=== PATIENT | male | born 1950 | race Caucasian/White ===

== ENCOUNTER 2021-03-06 14:08 | Observation (INO) | payer MEDICARE, OTHER ==
[~2021-03-06] VITALS: Ht 175.3 cm; Wt 82.8 kg
[~2021-03-06 14:08] MED LIST: ASPI-988 PO; CEPH500B PO; METR500T PO
[2021-03-06 15:15] LABS: APPEARANCE,URINE Clear (CLEAR); BILIRUBIN,URINE Negative (NEGATIVE); COLOR,URINE Dark Yellow (YELLOW); GLUCOSE, URINE (UA) Negative (NEGATIVE); KETONES,URINE Trace mg/dL (NEGATIVE); LEUKOCYTE ESTERASE ,URINE Negative (NEGATIVE); NITRATE,URINE Negative (NEGATIVE); OCCULT BLOOD,URINE Negative (NEGATIVE); PROTEIN,URINE Negative (NEGATIVE); UROBILINOGEN,URINE 0.2 mg/dL (0.2-1.0)
[2021-03-06 15:27] LABS: BASOPHILS % (AUTO) 0.9 % (0.0-5.0); EOSINOPHILS % (AUTO) 7.2 % (0.0-8.0); HEMATOCRIT 40.4 % (42-54); LYMPHOCYTES % (AUTO) 19.8 % (21.0-51.0); MEAN CORPUSCULAR HEMOGLOBIN 29.6 pg (27.0-33.0); MEAN CORPUSCULAR HGB CONC 33.2 g/dL (32.0-36.0); MEAN CORPUSCULAR VOLUME 89.2 fL (79-99); MONOCYTES % (AUTO) 9.2 % (3.0-13.0); NEUTROPHILS % (AUTO) 62.6 % (40.0-77.0); PLATELET COUNT (AUTO) 257 K/uL (130-400); RED BLOOD CELL COUNT(AUTO) 4.53 MIL/uL (4.50-6.20); RED CELL DISTRIBUTION WIDTH 12.7 % (11.0-15.5); WHITE BLOOD COUNT (AUTO) 8.8 K/uL (4.8-10.8)
[2021-03-06 15:42] LABS: CREATININE 1.2 mg/dL (0.5-1.5); POTASSIUM 3.4 mmol/L (3.5-5.1)
[2021-03-06 15:59] LABS: ALBUMIN 3.7 g/dL (3.5-5.0); BILIRUBIN,TOTAL 0.6 mg/dL (0.2-1.0); TOTAL PROTEIN, SERUM 7.4 g/dL (6.0-8.3)
[2021-03-06] MEDS ORDERED: HYDRALAZINE 20MG/ML VIAL IV PRN (16:00)
[2021-03-06] MEDS ORDERED: ACETAMINOPHEN 325 MG TAB PO PRN (16:00)
[2021-03-06] MEDS ORDERED: LACTULOSE 20 GM/30 ML UDCUP PO PRN (16:00)
[2021-03-06] MEDS ORDERED: ONDANSETRON 4MG INJ IV PRN (16:00)
[2021-03-06] MEDS ORDERED: KCL 20 MEQ ERTAB PO ONE ×2 (17:00→18:21)
[2021-03-06] MEDS: 0.9%NACL 1000ML 1,000 ML IV SCH (17:26)
[2021-03-06] MEDS: CEFTRIAXONE 1G VIAL IVP SCH (17:27)
[2021-03-06 19:07] VITALS: BP 109/60
[2021-03-06 20:08] VITALS: BP 95/77
[2021-03-06] MEDS: FAMOTIDINE 20MG TAB PO SCH (20:59)
[2021-03-07 01:40] VITALS: BP 109/79
[2021-03-07 05:21] VITALS: BP 123/69
[2021-03-07] MEDS: CEFTRIAXONE 1G VIAL IVP SCH ×2 (05:46→17:45)
[2021-03-07] MEDS: 0.9%NACL 1000ML 1,000 ML IV SCH ×2 (06:39→10:55)
[2021-03-07 06:55] LABS: EOSINOPHILS % (AUTO) 9.3 % (0.0-8.0); HEMATOCRIT 40.4 % (42-54); LYMPHOCYTES % (AUTO) 25.3 % (21.0-51.0); MEAN CORPUSCULAR HEMOGLOBIN 28.9 pg (27.0-33.0); MEAN CORPUSCULAR HGB CONC 31.4 g/dL (32.0-36.0); MONOCYTES % (AUTO) 10.6 % (3.0-13.0); NEUTROPHILS % (AUTO) 53.3 % (40.0-77.0); PLATELET COUNT (AUTO) 239 K/uL (130-400); RED BLOOD CELL COUNT(AUTO) 4.39 MIL/uL (4.50-6.20); RED CELL DISTRIBUTION WIDTH 12.6 % (11.0-15.5); WHITE BLOOD COUNT (AUTO) 8.1 K/uL (4.8-10.8)
[2021-03-07 07:05] LABS: CREATININE 1.1 mg/dL (0.5-1.5); POTASSIUM 4.6 mmol/L (3.5-5.1)
[2021-03-07 08:11] VITALS: BP 118/75
[2021-03-07] MEDS: FAMOTIDINE 20MG TAB PO SCH (10:53)
[2021-03-07 11:22] VITALS: BP 129/77
[2021-03-07] MEDS ORDERED: BUPIVACAINE/PF 0.5% 10ML VIAL IJ SCH (12:00)
[2021-03-07] MEDS ORDERED: TRAMADOL HCL 50 MG TABLET PO PRN (14:00)
[2021-03-07 16:55] VITALS: BP 109/69
[2021-03-07] MEDS ORDERED: CEPH500B PO (17:46)
[2021-03-07] MEDS ORDERED: TRAM50TA4 PO (17:46)
[2021-03-07] MEDS ORDERED: DOXY-336 PO (17:46)
== END 2021-03-07 18:25 | disposition home or self-care (01) ==
LOC: EDH 14:08 → EDHIP 15:49 → UNDOADMOB 16:16 → EDHIP 03-07 04:29 → 3AH 03-07 04:29
PROVIDERS: ADMIT Internal Medicine; ATTEND Internal Medicine
DX: L03.115 Cellulitis of right lower limb (principal); S80.11XA Contusion of right lower leg, initial encounter; I10 Essential (primary) hypertension; K85.10 Biliary acute pancreatitis without necrosis or infection; Z90.49 Acquired absence of other specified parts of digestive tract; Z79.899 Other long term (current) drug therapy; Z98.890 Other specified postprocedural states; Z79.82 Long term (current) use of aspirin; W19.XXXA Unspecified fall, initial encounter; Y92.89 Other specified places as the place of occurrence of the external cause; Y93.89 Activity, other specified; Y99.8 Other external cause status
CPT/HCPCS: 10140; 36415 ×2; 73700; 80048; 80053; 81003; 82550; 84145; 85025 ×2; 85651; 86140; 87040 ×2; 87070; 93971; 96361 ×2; 96374; 96376; 99284; A6266; G0378 ×26; J0696 ×3; J3490; J7030 ×2

== ENCOUNTER 2024-06-05 13:03 | Emergency (ER) | payer OTHER ==
[~2024-06-05] VITALS: Ht 175.3 cm; Wt 78.9 kg
[~2024-06-05 13:03] MED LIST changes: -ASPI-988 PO; +DOXY100C61 PO; -METR500T PO; +TRAM50TA4 PO
--- NOTE | 2024-06-05 13:12 | ERN ---
ED Note History of Present Illness Stated Complaint: DIZZINESS Chief Complaint: Dizzy/Light Headed Time Seen by MD: 13:04 Dictation: PATIENT IS A 74-YEAR-OLD MALE COMING IN VIA EMS WITH COMPLAINTS OF HAVING NAUSEA ONSET THIS MORNING AND FEELING LIGHTHEADED. HE STATES HE NEVER VOMITED HOWEVER HAS NOT HAD ANYTHING TO EAT. HE CURRENTLY DENIES ANY CHEST PAIN BACK PAIN NO ABDOMINAL PAIN NO CHANGE IN URINATION, DOES NOT FEEL A SENSE OF VERTIGO OR DIZZINESS. NIH IS 0 STATES HE HAS HAD THIS COMPLAINT BEFORE AND HAS BEEN THROUGH CARDIOLOGY AND TOMORROW SCHEDULED FOR A LEXISCAN. Allergies: Coded Allergies: Influenza Virus Vaccines (Verified Allergy, Unknown, 04/26/20) Home Meds Active Scripts Ondansetron (Ondansetron Odt) 4 Mg Tab.rapdis, 4 MG PO Q6HPRN PRN for nausea, #16 TAB 0 Refills Prov:HERBIE CHOW NP 06/05/24 Meclizine HCl (Meclizine HCl) 25 Mg Tablet, 25 MG PO TID for vertigo, #30 TAB 0 Refills Prov:HERBIE CHOW NP 06/05/24 Doxycycline Monohydrate (Doxycycline Monohydrate) 100 Mg Capsule, 100 MG PO BID for 5 Days, #10 CAP 0 Refills Prov:MITCHELL DILLON MD 03/07/21 Cephalexin Monohydrate (Keflex) 500 Mg Cap, 500 MG PO BID for 5 Days, #10 CAP 0 Refills Prov:MITCHELL DILLON MD 03/07/21 Tramadol Hcl (Tramadol HCl) 50 Mg Tablet, 50 MG PO [id number] PRN for PAIN 6-10 for 5 Days, #10 TAB 0 Refills Prov:MITCHELL DILLON MD 03/07/21 Past Medical History Past Medical History: No Pertinent History Surgical History: None Family History: HTN Social History: Negative, Lives with family RN Note Reviewed/Agreed w/PFSH: Yes Review of System Dictation CONSTITUTIONAL: NEGATIVE EXCEPT FOR HPI LIGHTHEADED HEAD/FACE: NEGATIVE EXCEPT FOR HPI EENT: NEGATIVE EXCEPT FOR HPI RESPIRATORY: NEGATIVE EXCEPT FOR HPI GASTROINTESTINAL/ABDOMINAL: NEGATIVE EXCEPT FOR HPI NAUSEA GENITOURINARY: NEGATIVE EXCEPT FOR HPI MUSCULOSKELETAL: NEGATIVE EXCEPT FOR HPI INTEGUMENTARY: NEGATIVE EXCEPT FOR HPI NEUROLOGICAL/PSYCH: NEGATIVE EXCEPT FOR HPI HEMATOLOGIC/LYMPHATIC: NEGATIVE EXCEPT FOR HPI ALL SYSTEMS NEGATIVE, EXCEPT NOTED ABOVE. 13 POINT REVIEW OF SYSTEMS ASSESSED AND ALL NEGATIVE EXCEPT FOR ABOVE. Initial Vital Sign VS Vital Signs Date Time Temp Pulse Resp B/P (MAP) Pulse Ox O2 Delivery O2 Flow Rate FiO2 06/05/24 13:05 99.0 61 20 158/92 99 Room Air 06/05/24 17:00 0 21 Physical Exam Dictation VITAL SIGNS REVIEWED NO COMPLAINTS OF VOICE AT PRESENT TIME GENERAL APPEARANCE: ALERT, ORIENTED X 3, NO ACUTE DISTRESS, WELL DEVELOPED, NO URISHED. HEAD AND FACE: NON-TRAUMATIC. EYES: PERRL, PINK CONJUNCTIVAS, EYELID NO TRAUMA, ANTERIOR CHAMBER WITH ARCUS SENILIS. EARS: PINNAS INTACT AND NO SIGNS OF TRAUMA OR ERYTHEMA EAR CANALS CLEAR AND NO DISCHARGE TM NO ERYTHEMA NOSE: NO DISCHARGE, NO BLEEDING. OROPHARYNX: MOUTH NORMAL, TONGUE PINK, PHARYNX CLEAR,NO ERYTHEMA, TONSILS NO EXUDATES, NO ABSCESSES NOTED, MUCOUS M EMBRANE MOIST NECK: SUPPLE, NON-TENDER, NO THYROMEGALY, NO MASSES, NO JVD, NO BRUITS BREAST:DEFERRED CHEST:NO TENDERNESS, NO CREPITUS, NO PARADOXICAL MOVEMENT, NO RETRACTIONS LUNGS:CLEAR, WELL-VENTILATED, SYMMETRIC, NO RALES, NO WHEEZING, NO RHONCHI, NO STRIDOR, GOOD BREATH SOUNDS BILATERALLY HEART: REGULAR RATE, REGULAR RHYTHM, NO MURMUR, NO GALLOPS VASCULAR: NO PERIPHERAL EDEMA, ABDOMEN: SOFT, POSITIVE BOWEL SOUNDS, NONDISTENDED, NO GUARDING, NONTENDER, NO REBOUND, NO MASSES NO HEPATOMEGALY, NO SPLENOMEGALY, NO LITTLE'S SIGN, NO HERNIAS. RECTAL: DEFERRED GENITAL: DEFERRED NEUROLOGICAL: NORMAL SPEECH, MOTOR FUNCTION INTACT, SENSORY FUNCTION INTACT NIH IS 0 MUSCULOSKELETAL: NECK NONTENDER, FULL RANGE OF MOTION, BACK NONTENDER, FULL RANGE OF MOTION, EXTREMITIES: NONTENDER, FULL RANGE OF MOTION SKIN: COLOR PINK, DRY, NO TURGOR, NO RASH, NO LACERATIONS, NO ABRASIONS, NO CONTUSIONS. LYMPHATIC: DEFERRED Results (Laboratory/Radiology) Laboratory/Radiology Laboratory Tests Test 06/05/24 13:30 White Blood Count 8.9 K/uL (4.8-10.8) Red Blood Count 4.70 MIL/uL (4.50-6.20) Hemoglobin 14.2 g/dL (14.0-18.0) Hematocrit 42.8 % (42-54) Mean Corpuscular Volume 91.1 fL (79-99) Mean Corpuscular Hemoglobin 30.2 pg (27.0-33.0) Mean Corpuscular Hemoglobin Concent 33.2 g/dL (32.0-36.0) Red Cell Distribution Width 12.4 % (11.0-15.5) Platelet Count 276 K/uL (130-400) Mean Platelet Volume 10.8 fL (7.5-10.5) H Immature Granulocyte % (Auto) 0.2 % (0-1) Neutrophils (%) (Auto) 77.1 % (40.0-77.0) H Lymphocytes (%) (Auto) 13.2 % (21.0-51.0) L Monocytes (%) (Auto) 6.0 % (3.0-13.0) Eosinophils (%) (Auto) 2.7 % (0.0-8.0) Basophils (%) (Auto) 0.8 % (0.0-5.0) Neutrophils # (Auto) 6.8 K/uL (1.8-7.7) Lymphocytes # (Auto) 1.2 K/uL (1.0-4.8) Monocytes # (Auto) 0.5 K/uL (0.1-1.0) Eosinophils # (Auto) 0.24 K/uL (0.00-0.70) Basophils # (Auto) 0.07 K/uL (0.00-0.20) Absolute Immature Granulocyte (auto 0.02 K/uL (0-1) Nucleated Red Blood Cells 0.0 % (0.0-0.19) Sodium Level 142 mmol/L (136-145) Potassium Level 4.3 mmol/L (3.5-5.1) Chloride Level 105 mmol/L (101-111) Carbon Dioxide Level 34 mmol/L (21-32) H Blood Urea Nitrogen 16 mg/dL (7-18) Creatinine 1.1 mg/dL (0.5-1.3) Glomerular Filtration Rate Calc 71 mL/min (>90) Random Glucose 106 mg/dL (70-105) H Total Calcium 9.6 mg/dL (8.5-10.1) Troponin I High Sensitivity < 4 ng/L (4-75) L Labs Reviewed?: Yes EKG Comment: EKG sinus bradycardia/heart rate 54/axis normal/right bundle branch block ED Course ED Course Orders Procedure Category Date Status Time Cbc With Differential LAB 06/05/24 Complete 13:10 Troponin I High LAB 06/05/24 Complete Sensitivity 13:10 12 Lead Ekg Tracing- EKG 06/05/24 Resulted Technical 13:10 0.9%Nacl 1000ml (Ns PHA 06/05/24 Complete 1000ml) 13:30 Ondansetron 4mg Inj PHA 06/05/24 Complete (Zofran 4mg Inj) 13:30 Basic Metabolic Panel LAB 06/05/24 Complete 13:10 Current Medications Medications (Trade) Dose Ordered Sig/Shelbie Route PRN Reason Start Time Stop Time Status Last Admin Dose Admin Ondansetron HCl (zoFRAN 4MG INJ) 4 mg ONCE ONCE IVP 06/05/24 13:30 06/05/24 13:31 DC Sodium Chloride 1,000 ml @ 0 mls/hr ONCE ONCE IV 06/05/24 13:30 06/05/24 13:31 DC 06/05/24 17:14 Vital Signs Date Time Temp Pulse Resp B/P (MAP) Pulse Ox O2 Delivery O2 Flow Rate FiO2 06/05/24 18:27 97.5 63 16 131/62 99 Room Air* 0 21 06/05/24 17:00 97.5 68 16 132/68 98 Room Air* 0 21 06/05/24 13:05 99.0 61 20 158/92 99 Room Air HEART Score Response (Comments) Value EKG: Repolarization changes 1 Age: > 65yrs (+2) 2 Risk Factors: 1-2 risk factors (+1) 1 Initial Troponin: Normal limit (0) 0 Total 4 Medical Decision Making MDM MDM: Differential diagnosis: ACS/AMI/electrolyte imbalance/dehydration/nausea/ Rationale: Tests considered and ordered secondary to shared decision making include EKG/labs Previous outside records reviewed: Old ER visits. Reviewed Risk of complication and/or morbidity or mortality of patient management: None Medications-Per medication reconciliation see nurse's notes Need for hospitalization: Patient does not meet criteria for hospitalization. None Need for emergency major/minor surgery: No There are no social concerns with this patient. Prescription drug management ondansetron Prescriptions will include symptomatic care Patient's prior external medical records from other ER visits were reviewed by me as indicated. Prior testing and results from previous visits were reviewed. Prior tests were taken into account with medical decision making and resource utilization, independent historian/historians were used to obtain complete medical history. I independently interpreted the test that were performed, results were reviewed by me and considered findings on radiology if ordered. Medical management and examination interpretation discussions were had by me with other qualified healthcare professionals as indicated for the patient's care. DX & DISP Disposition: Discharge Departure Impression: Primary Impression: Nausea & vomiting Additional Impression: Dizziness Condition: Stable Scripts Ondansetron (Ondansetron Odt) 4 Mg Tab.rapdis 4 MG PO Q6HPRN PRN for nausea, #16 TAB 0 Refills Prov: HERBIE CHOW NP 06/05/24 Meclizine HCl (Meclizine HCl) 25 Mg Tablet 25 MG PO TID for vertigo, #30 TAB 0 Refills Prov: HERBIE CHOW ENROUTE CONTROLLER 06/05/24 Additional Instructions: Follow-up with primary care provider in 1 to 2 days. Take medications as directed here in the emergency room. Okay to continue home medications unless otherwise discussed during your visit in the emergency room today. Return to your nearest emergency room if symptoms worsen or if there is no improvement. Call 911 if you need immediate assistance. Take Tylenol or Motrin [id number] as needed and if no contraindications are present. Increase oral hydration. A wound culture or urine culture was ordered here in the emergency room department please follow-up with primary care provider and advise them to get repeat ports from our facility. If you had any Koko wrap/splints that were applied here, please do not remove them until you see your primary care or specialty. Take meclizine every 8 hours for the next two days. Take Zofran as directed for nausea. [facility] referral Referrals: NONE (PCP) Time of Disposition: 18:00 I have reviewed the case, and I agree with, Diagnosis and Plan ATTESTATION BY PHYSICIAN I PERFORMED THE SUBSTANTIVE PORTION OF THE VISIT. I HAVE REVIEWED AND PERSONALLY MADE AND APPROVED THE MANAGEMENT PLAN THAT IS DOCUMENTED IN THE NOTE BY MYSELF FOR THE A PP. I ACKNOWLEDGED FOR RESPONSIBILITY FOR THE PATIENT'S MANAGEMENT PLAN. HERBIE CHOW NP Jun 05, 2024 13:12 MANUEL MONTES MD Jun 07, 2024 07:32
--- NOTE | 2024-06-05 13:25 | EKG ---
[facility] Test Date: 2024-06-05 Test Time: 13:22:48 Pat Name: MARTINE WILDE Department: EDH Room: Gender: M Child Care Development Specialist: [facility] : 1950 Requested By: HERBIE CHOW Order Number: [id number] Reading MD: Juwan Pan Measurements Intervals [place] Rate: 54 P: 78 IA: 154 QRS: 45 QRSD: 149 T: 16 QT: 466 QTc: 444 Interpretive Statements Sinus rhythm Right bundle branch block Compared to ECG 05/03/2020 19:32:51 Atrial premature complex(es) no longer present Electronically Signed On 06-05-2024 21:10:48 COKE LOADER by Juwan Pan Please click the below link to view image of tracing.
[2024-06-05] MEDS: ondanSETRON 4MG INJ IVP ONE (13:30)
[2024-06-05 13:35] LABS: BASOPHILS # (AUTO) 0.07 K/uL (0.00-0.20); BASOPHILS % (AUTO) 0.8 % (0.0-5.0); EOSINOPHILS # (AUTO) 0.24 K/uL (0.00-0.70); EOSINOPHILS % (AUTO) 2.7 % (0.0-8.0); HEMATOCRIT 42.8 % (42-54); IMMATURE GRANULOCYTE ABSOLUTE 0.02 K/uL (0-1); LYMPHOCYTES # (AUTO) 1.2 K/uL (1.0-4.8); LYMPHOCYTES % (AUTO) 13.2 % (21.0-51.0); MEAN CORPUSCULAR HEMOGLOBIN 30.2 pg (27.0-33.0); MEAN CORPUSCULAR HGB CONC 33.2 g/dL (32.0-36.0); MEAN CORPUSCULAR VOLUME 91.1 fL (79-99); MONOCYTES # (AUTO) 0.5 K/uL (0.1-1.0); NEUTROPHILS # (AUTO) 6.8 K/uL (1.8-7.7); NEUTROPHILS % (AUTO) 77.1 % (40.0-77.0); PLATELET COUNT (AUTO) 276 K/uL (130-400); RED CELL DISTRIBUTION WIDTH 12.4 % (11.0-15.5); WHITE BLOOD COUNT (AUTO) 8.9 K/uL (4.8-10.8)
[2024-06-05 13:43] LABS: CREATININE 1.1 mg/dL (0.5-1.3); POTASSIUM 4.3 mmol/L (3.5-5.1)
[2024-06-05] MEDS: 0.9%NACL 1000ML 1,000 ML IV ONE (17:14)
--- NOTE | 2024-06-05 17:15 | NUR ---
MELANIEFRAN NOT GIVEN PATIENT DOESN'T FEEL NAUSEOUS AT THE MOMENT.HE WANTS TO HOLD IT UNTIL HE NEEDS IT.
[2024-06-05] MEDS ORDERED: ONDA-243 PO (18:01)
[2024-06-05] MEDS ORDERED: MECL-302 PO (18:01)
[2024-06-05 18:27] VITALS: BP 131/62; PULSE 63; RESP 16; TEMP 97.5; O2SAT 99
== END 2024-06-05 18:40 | disposition home or self-care (01) ==
LOC: EDH 13:03
DX: R11.2 Nausea with vomiting, unspecified (principal); R42 Dizziness and giddiness; Z88.7 Allergy status to serum and vaccine
CPT/HCPCS: 99284; 96360; 84484; 80048; 85025; 36415; 93005; J7030

== ENCOUNTER → 2024-06-06 | Outpatient (CLI) | payer OTHER ==
[~2024-06-06] MED LIST changes: +MECL-302 PO; +ONDA-243 PO
[2024-06-06] MEDS: REGADENOSON 0.4 MG/5 ML PF SYG IVP SCH (11:20)
== END | disposition home or self-care (01) ==
LOC: RAH 08:28
PROVIDERS: ATTEND Internal Medicine Cardiovascular Disease
DX: R07.9 Chest pain, unspecified (principal)
CPT/HCPCS: 78452; 93017; J2785; A9500 ×2